=== PATIENT | male | born 1960 | race African-American/Black ===

== ENCOUNTER 2024-11-09 14:38 | Outpatient (AMB) | payer BC, OTHER, SELFPAY ==
--- NOTE | 2024-11-09 15:06 | MHC.OFFVIS ---
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 He was doing ok with no change. Mood was ok. He was frequently confused and fussy. He slept a lot. No seizure or falls. [facility] Medical History (Updated 11/09/24 @ 15:16 by Chuy Mendiola MD) Small vessel disease, cerebrovascular Encephalopathy Vascular dementia Review of Systems Const Details: Constitutional:?No fever, chills, fatigue, weight loss, or night sweats. HEENT:?No headache, vision changes, hearing loss, nasal congestion, sore throat. Neurological:?Forgetfulness and confusion Psychiatric:?Sometimes fussy. Endocrine:?No heat/cold intolerance, polydipsia, polyuria, or hair/skin changes. Hematologic/Lymphatic:?No easy bruising, bleeding, or lymphadenopathy. Integumentary (Skin):?No rash, lesions, itching, or color changes. ? Physical Exam Neuro Other: Mental Status: Alert and oriented to correct month and year. Normal attention. Normal spontaneous speech, fluency, and comprehension. Cranial Nerves: CN II: Visual simons full to confrontation, visual acuity intact. CN III, IV, : Pupils equal, round, reactive to light and accommodation. Extraocular movements are normal. CN V: Facial sensation is normal. CN VII: Facial movements symmetrical. CN VIII: Hearing intact to bedside conversation is normal. CN IX, X: Palate elevates symmetrically. CN XI: Shoulder shrug and head turn symmetrical. CN XII: Tongue midline without atrophy or fasciculations. Gait: Left hemiparetic gait Extrapyramidal: Full facial expressions and blinking. No rigidity. Movements are appropriate with no tremor or abnormality. Speech: Normal; no dysarthria or tremor. Assessment & Plan Assessment & Plan (1) Vascular dementia: Comment: MRI brain WO at [facility] in August 2024: Extensive WM changes and mod atrophy Code(s): F01.50 - Vascular dementia, unspecified severity, without behavioral disturbance, psychotic disturbance, mood disturbance, and anxiety Category: Medical Qualifiers: Dementia severity: moderate Dementia behavioral or psychological symptom: without behavioral, psychotic, or mood disturbance or anxiety Qualified Code(s): F01.B0 - Vascular dementia, moderate, without behavioral disturbance, psychotic disturbance, mood disturbance, and anxiety (2) Cerebral microvascular disease: Code(s): I67.89 - Other cerebrovascular disease Category: Medical (3) Left hemiparesis: Code(s): G81.94 - Hemiplegia, unspecified affecting left nondominant side Category: Medical Plan Impression: a: Moderate vascular dementia b: Cerebral microvascular disease c: Left hemiparesis Rec: a: Memantine 5mg bid b: Cannot take aspirin type meds due to PUD c: Continue statin Medications: Changed From memantine (Namenda) 5 mg PO BID 30 days 60 tabs 0RF To memantine (Namenda) 5 mg PO BID 180 tabs 1RF 90 days Coding Level of Care Code Est Pt Level 4 (30898) Diagnoses Moderate vascular dementia without behavioral disturbance, psychotic disturbance, mood disturbance, or anxiety F01.B0 Dementia severity: moderate Dementia behavioral or psychological symptom: without behavioral, psychotic, or mood disturbance or anxiety Cerebral microvascular disease I67.89 Left hemiparesis G81.94
== END 2024-11-09 15:19 | disposition home or self-care (01) ==
LOC: HO.HSM 14:39
PROVIDERS: PCP Internal Medicine; Referring Provider Internal Medicine; Visit Provider Psychiatry & Neurology Neurology
DX: F01.B0 Vascular dementia, moderate, without behavioral disturbance, psychotic disturbance, mood disturbance, and anxiety (principal); I67.89 Other cerebrovascular disease; G81.94 Hemiplegia, unspecified affecting left nondominant side
CPT/HCPCS: 99214

== ENCOUNTER 2025-03-29 11:04 | Outpatient (AMB) | payer OTHER, BC, SELFPAY ==
--- NOTE | 2025-03-29 11:17 | A.OFFVIS_ITS ---
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 He is presenting for neurological follow-up for dementia. According to his family, he has significant cognitive impairment, cannot think for himself, and requires full assistance without the ability to direct himself. 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 The family reports issues with obtaining adequate [facility]SULT[facility] services through [facility], stating that services seem to be based on mobility rather than cognitive function. Three years ago, his services were reduced to 11 hours per week. The patient's medical history includes cerebral polyps. He has three children and one sister. [facility] Medical History (Updated 11/09/24 @ 15:16 by Chuy Mendiola MD) Small vessel disease, cerebrovascular Encephalopathy Vascular dementia Review of Systems Narrative - Psychiatric: Family denies hallucinations. - Musculoskeletal: Reports inability to raise both hands. - Neurological: Reports memory problems, confirmed by inability to recall the year or breakfast. Physical Exam Neuro Other: Mental Status: He is alert and awake with normal spontaneity and fluency of speech. He did not know what year this was. He was able to name his children but took sometime to, with these names. He was following simple commands. Cranial Nerves: CN II: Visual simons full to confrontation, visual acuity intact. CN III, IV, : Pupils equal, round, reactive to light and accommodation. Extraocular movements are normal. CN V: Facial sensation is normal. CN VII: Facial movements symmetrical. CN VIII: Hearing intact to bedside conversation is normal. CN IX, X: Palate elevates symmetrically. CN XI: Shoulder shrug and head turn symmetrical. CN XII: Tongue midline without atrophy or fasciculations. Gait: Slow and slightly left hemiparetic. Extrapyramidal: Full facial expressions and blinking. No rigidity. Movements are appropriate with no tremor or abnormality. Speech: Normal; no dysarthria or tremor. Assessment & Plan Assessment & Plan (1) Vascular dementia: Comment: MRI brain WO at [facility] in August 2024: Extensive WM changes and mod atrophy Code(s): F01.50 - Vascular dementia, unspecified severity, without behavioral disturbance, psychotic disturbance, mood disturbance, and anxiety Category: Medical Qualifiers: Dementia severity: moderate Dementia behavioral or psychological sy mptom: without behavioral, psychotic, or mood disturbance or anxiety Qualified Code(s): F01.B0 - Vascular dementia, moderate, without behavioral disturbance, psychotic disturbance, mood disturbance, and anxiety (2) Cerebral microvascular disease: Code(s): I67.89 - Other cerebrovascular disease Category: Medical Plan Impression: a: Moderately vascular dementia b: Cerebral microvascular disease c: Left hemiparesis Rec: a: Memantine 10mg bid b: He requires 24/7 care for ADLs. due to cognitive and physical disability I discussed the patient's severe dementia and significant cognitive impairment with his family. Based on my assessment, I explained that he requires 24/7 assistance, and I will document this recommendation in a note to his primary care provider. I advised the family that while my letter is supportive, the service agency makes the final decision, and a formal rehabilitation evaluation may be the next step if services are not approved. We will continue his medication with a prescription for 10 mg twice daily and will follow up in six months. Medications: New memantine (Namenda) 10 mg PO BID 180 tabs 1RF Discontinued memantine (Namenda) Discontinued Reason: Doctor's Order 5 mg PO BID 90 days 180 tabs 1RF Coding Level of Care Code Est Pt Level 3 (27707) Diagnoses Moderate vascular dementia without behavioral disturbance, psychotic disturbance, mood disturbance, or anxiety F01.B0 Dementia severity: moderate Dementia behavioral or psychological symptom: without behavioral, psychotic, or mood disturbance or anxiety Cerebral microvascular disease I67.89
== END 2025-03-29 11:34 | disposition home or self-care (01) ==
LOC: HO.HSM 11:05
PROVIDERS: PCP Internal Medicine; Visit Provider Psychiatry & Neurology Neurology
DX: F01.B0 Vascular dementia, moderate, without behavioral disturbance, psychotic disturbance, mood disturbance, and anxiety (principal); I67.89 Other cerebrovascular disease
CPT/HCPCS: 99213